=== PATIENT | female | born 1950 | race Caucasian/White ===

== ENCOUNTER → 2019-04-03 05:41 | Day surgery (SDC) | payer MEDICARE, BC ==
[~2019-04-03 05:41] MED LIST: Bacitracin OINTMENT* 0.5% 0.5 oz TUBE ONE; Buffered Lidocaine 1% SYRIN* 1 ML/SYRINGE INTRADERM ONE; Lactated Ringers 1000 ML Bag* 1,000 ML IV SCH; Lidocaine 1% INJ* 10 MG/ML 30 ML SDV ONE; Lidocaine 1% w EPI 1:100,000* MDV 20 ML VIAL ONE; Lidocaine 2% PF * 5 ML VIAL ONE; Midazolam* 1 MG/ML 2 ML VIAL (2 MG) ONE; Naloxone* 0.4 MG/ML 1 ML VIAL IV PRN; Propofol* 10 MG/ML 20 ML BTL ONE; Sodium Citrate/Citric Acid* 15 ML UDC ONE; Sodium Citrate/Citric Acid* 15 ML UDC PO ONE; fentaNYL* 50 MCG/ML 2 ML VIAL (100 MCG VIAL) ONE
[2019-04-03 06:38] LABS: ABS Basophils 0.1 10^3/ul (0-0.2); ABS Eosinophils 0.2 10^3/ul (0-0.6); ABS Monocytes 0.6 10^3/ul (0-0.8); Eosinophil % 3.6 %; Hematocrit 41 % (35-47); Hemoglobin 14.1 g/dL (12.0-16.0); Lymphocyte % 33.8 %; Mean Corpuscular HGB Conc 35 g/dL (31-36); Mean Corpuscular Hemoglobin 30 pg (27-31); Mean Corpuscular Volume 87 fL (80-97); Mean Platelet Volume 6.8 fL (7.4-10.4); Nucleated Red Blood Cells % 0.1; Platelet Count 229 10^3/uL (150-450); Red Blood Count 4.67 10^6 /uL (3.70-4.87); Red Cell Distribution Width 13 % (10-15); White Blood Count 5.9 10^3/uL (3.5-10.8)
[2019-04-03 08:48] VITALS: BP 114/58
--- NOTE | 2019-04-03 08:51 | OP ---
Operative Report - Detailed - Operation Details Date of Operation: 04/03/19 Date of : 1950 Surgeon(s): Justo Perez Jr., DO Commissioning Specialist(s): Valdo Angelo MD Anesthesiologist(s): Kaiser Buck DO Anesthesia: MAC and Lidocaine w/ Epi Local Pre-Op Diagnosis: Right Labial Verrucous like lesion Post-Op Diagnosis: Same Planned Operative Procedure(s): Wide local excision of Right Labial Verrucous like lesion Estimated Blood Loss: 5mL IV Fluids: 800mL Specimen(s)/Culture(s) Description: Right labial lesion Drains: none Counts: correct x 3 Wound Classification: N/A Complications: none Hardware: n/a Findings: Right labial verrucous like lesion Description of Procedure: The risks, benefits, alternative and indications of the procedure were discussed with the patient. Given location of lesion and size recommendation was to perform wide local excision in the operating with anesthesia. Patient voiced understanding and written consent was obtained. The patient was taken to the OR where MAC was administered without complication. She was placed in dorsal lithotomy position with yellow fin stirrups. The patient was prepared and draped in the normal sterile fashion. 10 cc of 1% lidocaine with epi was infiltrated under the lesion on the right labia. A 1 cm circumference around the lesion was marked using a marking pen. A 15 blade was used to perform an elipsis shaped wide local excision of the approximately 1x2cm lesion on the right labia. The specimen was sent to pathology for permanent. The incision was closed in two layers with 3-0 vicryl and 4-0 monocryl for the skin. The patient was cleaned and bacitracin ointment applied. SCD's were on and inflating for the entire procedure. Patient Tolerated the procedure well. Was awoken at the end of procedure without difficulty. All counts correct at the end of the procedure. Pt to PACU in good condition. Will be discharged home once meeting routine ambulatory surgery protocols.
== END | disposition home or self-care (01) ==
LOC: OR 05:41
PROVIDERS: ATTEND Obstetrics & Gynecology
DX: N90.89 Other specified noninflammatory disorders of vulva and perineum (principal); E03.9 Hypothyroidism, unspecified; J45.909 Unspecified asthma, uncomplicated; M19.90 Unspecified osteoarthritis, unspecified site; F32.9 Major depressive disorder, single episode, unspecified
CPT/HCPCS: 36415; 85025; 88305; A9270-GY; J2250; J2704; J3010